=== PATIENT | female | born 1975 | race African-American/Black ===

== ENCOUNTER 2017-04-22 15:13 | Emergency (ER) | payer SELFPAY ==
[~2017-04-22] VITALS: Ht 165.1 cm; Wt 90.7 kg
[2017-04-22] MEDS ORDERED: DEXAMETHASONE SOD PHOS 20 MG/5 ML VIAL. IV ONE (15:30)
[2017-04-22] MEDS ORDERED: IPRATRPIUM/ALBUTEROL 0.5/2.5MG 3 ML NEBU. NEB ONE (15:30)
[2017-04-22] MEDS ORDERED: ASPIRIN ENTERIC COATED 325 MG TABLET.DR. PO ONE (15:30)
--- NOTE | 2017-04-22 15:36 | EKG ---
[facility] [address] [place] [address] Test Date: 2017-04-22 Test Time: 15:24:52 Pat Name: RACHELLE ELIZABETH Department: Room: Gender: F Director Operating Room: : 1975 Requested By: MARIAELENA SANDOVAL Order Number: [id number] Reading MD: Kenneth Davenport Measurements Intervals [place] Rate: 76 P: 32 ID: [id number] QRS: 0 QRSD: 68 T: 12 QT: 366 QTc: 416 Interpretive Statements SINUS RHYTHM Electronically Signed On 04-27-2017 10:31:13 CDT by Kenneth Davenport
--- NOTE | 2017-04-22 15:39 | PHYS DOC ---
Adult General Chief Complaint Chief Complaint: CHEST PAIN HPI HPI Patient is a 41 year old female presenting to the emergency department for evaluation of chest pain that has been going on for 2 days and she had chest pain this morning at work and then again later this afternoon and her work sent home. Patient says that it as left-sided tightness with no radiation but makes her short of breath and did break out in a sweat one time. She says that she has been having cough and runny nose postnasal drip started 2 days as well. Cough is nonproductive. She says the chest pain can happen any time but she denies any exertion setting off. She denies any diabetes hypertension high cholesterol or family history of heart disease but she says that she does smoke cigarettes. She denies any prior cardiac risk stratification. PERC score is equal to 0. Heart score is equal to 1 prior to troponin returning. Review of Systems Review of Systems Constitutional: Denies fever or chills [] Eyes: Denies change in visual acuity, redness, or eye pain [] HENT: Denies nasal congestion or sore throat [] Respiratory: + cough and shortness of breath [] Cardiovascular: + CP GI: Denies abdominal pain, nausea, vomiting, bloody stools or diarrhea [] : Denies dysuria or hematuria [] Musculoskeletal: Denies back pain or joint pain [] Integument: Denies rash or skin lesions [] Neurologic: Denies headache, focal weakness or sensory changes [] Current Medications Current Medications Current Medications Medications (Trade) Dose Ordered Sig/Nohemi Start Time Stop Time Status Last Admin Dose Admin Albuterol/ Ipratropium (Duoneb) 3 ml 1X ONCE 04/22/17 15:30 04/22/17 15:47 DC 04/22/17 15:49 3 ML Aspirin (Ecotrin) 325 mg 1X ONCE 04/22/17 15:30 04/22/17 15:47 DC 04/22/17 15:53 325 MG Dexamethasone Sodium Phosphate (Decadron) 6 mg 1X ONCE 04/22/17 15:30 04/22/17 15:47 DC 04/22/17 15:53 6 MG Allergies Allergies Allergies Coded Allergies Type Severity Reaction Last Updated Verified No Known Drug Allergies 04/22/17 No Physical Exam Physical Exam Constitutional: Well developed, well nourished, no acute distress, non-toxic appearance. [] HENT: Normocephalic, atraumatic, bilateral external ears normal, oropharynx moist, no oral exudates, nasal turbinates boggy BL Eyes: PERRLA, EOMI, conjunctiva normal, no discharge. [] Neck: Normal range of motion, no tenderness, supple, no stridor. [] Cardiovascular:Heart rate regular rhythm, no murmur [] Lungs & Thorax: Bilateral breath sounds diminished with expiratory wheezing Abdomen: Bowel sounds normal, soft, no tenderness, no masses, no pulsatile masses. [] Skin: Warm, dry, no erythema, no rash. [] Back: No tenderness, no CVA tenderness. [] Extremities: No tenderness, no cyanosis, no clubbing, ROM intact, no edema. [] Neurologic: Alert and oriented X 3, normal motor function, normal sensory function, no focal deficits noted. [] Current Patient Data Vital Signs Vital Signs Date Time Temp Pulse Resp B/P (MAP) Pulse Ox O2 Delivery O2 Flow Rate FiO2 04/22/17 15:49 100 Room Air 04/22/17 15:39 98.6 83 18 128/67 (87) 98.6 Lab Values Laboratory Tests Test 04/22/17 15:32 White Blood Count 8.7 x10^3/uL (4.0-11.0) Red Blood Count 4.40 x10^6/uL (3.50-5.40) Hemoglobin 10.2 g/dL (12.0-15.5) L Hematocrit 31.4 % (36.0-47.0) L Mean Corpuscular Volume 72 fL (79-100) L Mean Corpuscular Hemoglobin 23 pg (25-35) L Mean Corpuscular Hemoglobin Concent 32 g/dL (31-37) Red Cell Distribution Width 16.6 % (11.5-14.5) H Platelet Count 355 x10^3/uL (140-400) Neutrophils (%) (Auto) 62 % (31-73) Lymphocytes (%) (Auto) 30 % (24-48) Monocytes (%) (Auto) 6 % (0-9) Eosinophils (%) (Auto) 2 % (0-3) Basophils (%) (Auto) 0 % (0-3) Neutrophils # (Auto) 5.4 x10^3uL (1.8-7.7) Lymphocytes # (Auto) 2.6 x10^3/uL (1.0-4.8) Monocytes # (Auto) 0.5 x10^3/uL (0.0-1.1) Eosinophils # (Auto) 0.2 x10^3/uL (0.0-0.7) Basophils # (Auto) 0.0 x10^3/uL (0.0-0.2) Platelet Estimate Pending Sodium Level 139 mmol/L (136-145) Potassium Level 3.9 mmol/L (3.5-5.1) Chloride Level 104 mmol/L (98-107) Carbon Dioxide Level 28 mmol/L (21-32) Anion Gap 7 (6-14) Blood Urea Nitrogen 6 mg/dL (7-20) L Creatinine 0.8 mg/dL (0.6-1.0) Estimated GFR (Cockcroft-Gault) 79.0 BUN/Creatinine Ratio 8 (6-20) Glucose Level 99 mg/dL (70-99) Calcium Level 8.6 mg/dL (8.5-10.1) Magnesium Level 1.8 mg/dL (1.8-2.4) Total Bilirubin 0.1 mg/dL (0.2-1.0) L Aspartate Amino Transferase (AST) 14 U/L (15-37) L Alanine Aminotransferase (ALT) 20 U/L (14-59) Alkaline Phosphatase 52 U/L (46-116) Troponin I Quantitative < 0.017 ng/mL (0.000-0.055) XU-Chl-H-Type Natriuretic Peptide 36 pg/mL (0-124) Total Protein 7.7 g/dL (6.4-8.2) Albumin 3.2 g/dL (3.4-5.0) L Albumin/Globulin Ratio 0.7 (1.0-1.7) L Laboratory Tests 04/22/17 15:32 Laboratory Tests 04/22/17 15:32 EKG EKG Sinus rhythm at 76 beats per minutes with leftward axis no obvious ST elevation or depression and normal T waves. Radiology/Procedures Radiology/Procedures Indication left-sided chest pain. Single view of the chest was obtained. No prior imaging of the chest is available. The heart, pulmonary vessels and mediastinum appear normal. The lungs are clear. There is no pleural fluid or pneumothorax. Visualized bony structures appear grossly intact. IMPRESSION: No acute or focal process is seen in the chest DICTATED and SIGNED BY: MADELIN WYMAN MD DATE: 04/22/171548 Course & Med Decision Making Course & Med Decision Making Patient more with upper respiratory tract symptoms with atypical type chest pain. EKG and troponin are negative more than 6 hours out from onset of symptoms. I do not suspect ACS pulmonary embolism or dissection as a cause of her pain and she appears well with normal vital signs and benign physical exam. 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 Patient aware and agreeable with plan and verbalized understanding of the above instructions. Dragon Disclaimer Dragon Disclaimer This electronic medical record was generated, in whole or in part, using a voice recognition dictation system. Departure Departure Impression: Primary Impression: Chest pain at rest Additional Impression: Wheezing Disposition: 01 HOME, SELF-CARE Condition: STABLE Referrals: MINE ZAZUETA MD Patient Instructions: Chest Pain (Nonspecific) Additional Instructions: USE OTC NASONEX FOR SINUS CONGESTION. TAKE IBUPROFEN OR TYLENOL FOR PAIN. THE ALBUTEROL WILL HELP YOUR SOA. Scripts Albuterol Sulfate (PROAIR HFA INHALER) 8.5 Gm Hfa.aer.ad 1 PUFF INH Q4HRS Y for SHORTNESS OF BREATH, #1 INHALER 0 Refills Prov: MARIAELENA SANDOVAL DO 04/22/17 Problem Qualifiers MARIAELENA SANDOVAL DO Apr 22, 2017 15:39
--- NOTE | 2017-04-22 15:53 | RAD ---
Indication left-sided chest pain. Single view of the chest was obtained. No prior imaging of the chest is available. The heart, pulmonary vessels and mediastinum appear normal. The lungs are clear. There is no pleural fluid or pneumothorax. Visualized bony structures appear grossly intact. IMPRESSION: No acute or focal process is seen in the chest
[2017-04-22 15:56] LABS: BASO % 0 % (0-3); EOS % 2 % (0-3); HEMATOCRIT 31.4 % (36.0-47.0); HEMOGLOBIN 10.2 g/dL (12.0-15.5); LYMPH # 2.6 x10^3/uL (1.0-4.8); LYMPH % 30 % (24-48); MEAN CORPUSCULAR HEMOGLOBIN 23 pg (25-35); MEAN CORPUSCULAR HGB CONC 32 g/dL (31-37); MEAN CORPUSCULAR VOLUME 72 fL (79-100); MONO % 6 % (0-9); NEUT % 62 % (31-73); PLATELET COUNT 355 x10^3/uL (140-400); RED CELL DISTRIBUTION WIDTH 16.6 % (11.5-14.5); WHITE BLOOD COUNT 8.7 x10^3/uL (4.0-11.0)
[2017-04-22 15:59] LABS: CALCIUM 8.6 mg/dL (8.5-10.1); CREATININE 0.8 mg/dL (0.6-1.0); POTASSIUM 3.9 mmol/L (3.5-5.1)
[2017-04-22 16:05] LABS: ALBUMIN 3.2 g/dL (3.4-5.0); ALBUMIN/GLOBULIN RATIO 0.7 (1.0-1.7); MAGNESIUM 1.8 mg/dL (1.8-2.4); TOTAL BILIRUBIN 0.1 mg/dL (0.2-1.0); TOTAL PROTEIN 7.7 g/dL (6.4-8.2)
[2017-04-22] MEDS ORDERED: PROAIR HFA8.5 GM INH (16:53)
[2017-04-22 17:02] VITALS: BP 109/60
[2017-04-22 17:09] LABS: PLT ESTIMATE ADEQUATE (ADEQUATE)
[2017-04-22 17:10] LABS: ANISOCYTOSIS SLIGHT; HYPOCHROMIA SLIGHT; MICROCYTOSIS SLIGHT; OVALOCYTES OCC; POIKILOCYTOSIS SLIGHT
== END 2017-04-22 17:16 | disposition home or self-care (01) ==
LOC: ER 15:13
DX: R07.89 Other chest pain (principal); R06.2 Wheezing; F17.210 Nicotine dependence, cigarettes, uncomplicated
CPT/HCPCS: 36415; 71010; 80053; 83735; 83880; 84484; 85025; 93005; 94250; 94640; 96374; 99285; J1100; J7620